=== PATIENT | female | born 1985 | race Caucasian/White ===

== ENCOUNTER 2016-10-05 21:31 | Emergency (ER) | payer BC ==
[~2016-10-05] VITALS: Ht 165.1 cm; Wt 86.2 kg
[2016-10-05] MEDS ORDERED: HYDROCODONE-AP1 EAC6 PO (23:01)
[2016-10-05] MEDS ORDERED: IBUPROFEN 600600 M1 PO (23:01)
[2016-10-05 23:46] VITALS: BP 128/79
== END 2016-10-05 23:48 ==
LOC: ER 21:31
DX: S92.352A Displaced fracture of fifth metatarsal bone, left foot, initial encounter for closed fracture (principal); Z77.22 Contact with and (suspected) exposure to environmental tobacco smoke (acute) (chronic); W01.0XXA Fall on same level from slipping, tripping and stumbling without subsequent striking against object, initial encounter; Y93.89 Activity, other specified; Y92.89 Other specified places as the place of occurrence of the external cause; Y99.8 Other external cause status

== ENCOUNTER 2017-11-25 12:49 | Emergency (ER) | payer BC, OTHER ==
[~2017-11-25] VITALS: Ht 165.1 cm; Wt 94.3 kg
[~2017-11-25 12:49] MED LIST: HYDROCODONE-AP1 EAC6 PO; IBUPROFEN 600600 M1 PO
[2017-11-25 14:09] LABS: URINE BILIRUBIN NEGATIVE (Negative); URINE BLOOD TRACE (Negative); URINE CLARITY CLEAR; URINE COLOR YELLOW; URINE GLUCOSE-RANDOM* NEGATIVE (Negative); URINE KETONES NEGATIVE (Negative); URINE LEUKOCYTES-REFLEX NEGATIVE (Negative); URINE NITRITE-REFLEX NEGATIVE (Negative); URINE PROTEIN (DIPSTICK) NEGATIVE (Negative); URINE SPECIFIC GRAVITY >= 1.030 (1.005-1.035); URINE UROBILINOGEN 0.2 E.U./dl (0.2-1.0)
[2017-11-25 14:40] LABS: ABSOLUTE NEUTROPHILS 5.7 thou/uL (1.4-8.2); BASOPHILS 0.6 % (0.0-2.0); EOSINOPHILS 1.1 % (0.0-3.0); HEMATOCRIT 41.1 % (37.0-47.0); MCH 30.9 pg (26.0-34.0); MCV 90.9 fL (80.0-100.0); MONOCYTES 5.8 % (1.0-8.0); PLATELET COUNT 353 thou/uL (150-400); POLYS 55.5 % (36.0-66.0); RBC 4.53 mil/uL (4.20-5.00); RDW 12.9 % (10.5-14.5); WBC 10.2 thou/uL (4.0-11.0)
[2017-11-25 14:51] LABS: CALCIUM 8.9 mg/dL (8.5-10.1); CREATININE 0.6 mg/dL (0.6-1.0); POTASSIUM 3.7 mmol/L (3.5-5.1)
[2017-11-25 14:58] LABS: ALBUMIN 3.7 g/dL (3.4-5.0); TOTAL BILIRUBIN 0.3 mg/dL (<0.1-1.0); TOTAL PROTEIN 7.7 g/dL (6.4-8.2)
[2017-11-25 15:37] VITALS: BP 117/77
== END 2017-11-25 15:38 | disposition home or self-care (01) ==
LOC: ER 12:49
PROVIDERS: Emergency Medicine
DX: R10.31 Right lower quadrant pain (principal); R11.0 Nausea; R19.7 Diarrhea, unspecified; R14.0 Abdominal distension (gaseous); F17.210 Nicotine dependence, cigarettes, uncomplicated

== ENCOUNTER 2019-03-08 03:07 | Emergency (ER) | payer BC, OTHER ==
[~2019-03-08] VITALS: Ht 165.1 cm; Wt 87.5 kg
[2019-03-08] MEDS ORDERED: ZALEPLON 10 MG10 M1 PO (03:15)
[2019-03-08] MEDS ORDERED: METHYLPHENIDATE10 M2 (03:17)
[2019-03-08] MEDS ORDERED: MOBIC15 MG PO (03:18)
[2019-03-08] MEDS ORDERED: CODEINE-GUAIFE120 ML PO (03:20)
[2019-03-08] MEDS ORDERED: LAMICTAL100 MG PO (03:23)
[2019-03-08] MEDS ORDERED: NAPROSYN500 MG PO (03:59)
[2019-03-08 04:14] VITALS: BP 107/60
== END 2019-03-08 04:05 | disposition home or self-care (01) ==
LOC: ER 03:07
DX: S62.633A Displaced fracture of distal phalanx of left middle finger, initial encounter for closed fracture (principal); F17.210 Nicotine dependence, cigarettes, uncomplicated; X50.1XXA Overexertion from prolonged static or awkward postures, initial encounter; Y92.89 Other specified places as the place of occurrence of the external cause; Y93.89 Activity, other specified; Y99.8 Other external cause status